=== PATIENT | female | born 2005 | race Caucasian/White ===

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

== ENCOUNTER 2024-04-05 17:03 | Emergency (ER) | payer MEDICAID, SELFPAY ==
[2024-04-05 17:43] VITALS: BP 115/66; PULSE 72; RESP 17; TEMP 36.6; O2SAT 100; BMI 19.0
--- NOTE | 2024-04-05 17:49 | DI.RAD.S_ITS ---
PROCEDURE: XR KNEE RT 3V INDICATIONS: injury TECHNIQUE: 3 views of the knee were acquired. COMPARISON: None. FINDINGS: Bones: No fractures or dislocations. No suspicious bony lesions. Soft tissues: No joint effusion. No suspicious soft tissue calcifications. IMPRESSION: No acute bony abnormality or significant effusion. If there are persistent symptoms or clinical suspicion for pathology, then repeat radiographs or advanced imaging (CT or MRI) may be considered for further evaluation. Dictated by: Jose Merrill M.D. on 04/05/2024 at 18:16 Approved by: Jose Merrill M.D. on 04/05/2024 at 18:17
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
[2024-04-05 19:50] VITALS: BP 102/75; PULSE 65; RESP 16; TEMP 36.9; O2SAT 98
== END 2024-04-05 19:51 | disposition home or self-care (01) ==
PROVIDERS: Emergency Provider Physician Assistant
DX: S83.411D Sprain of medial collateral ligament of right knee, subsequent encounter (principal)
CPT/HCPCS: 73562; 99281; 99283

== ENCOUNTER 2024-05-31 19:13 | Emergency (ER) | payer OTHER, SELFPAY ==
[2024-05-31] VITALS (8 sets, daily range): BP systolic 99–125; BP diastolic 58–88; PULSE 66–86; RESP 14–18; TEMP 37.2; O2SAT 97–100; BMI 18.7
--- NOTE | 2024-05-31 22:04 | PC.NURSE ---
Pt provides dc paperwork from previous facility visit. It shows rx's for albuterol inhaler, hydrocortisone cream, and prednisone. [facility] has not had to use inhaler. [facility] has taken steroid as prescribed and used cream without relief.
--- NOTE | 2024-05-31 23:49 | ED_ITS ---
HPI - Allergic Reaction General Chief complaint: Allergic Reaction Stated complaint: itching all over body Time Seen by Provider: 05/31/24 21:59 Source: patient Mode of arrival: Family Vehicle History of Present Illness HPI narrative: 18-year-old female presents for possible allergic reaction. She says that she is experiencing itching over her inner arms and her chest. Was seen at [facility] earlier in the week. She states that she was told that she had an allergic reaction but was not told what she was allergic to. She was discharged on prednisone and hydrocortisone cream. Patient states that she continues to have an itching sensation over her chest and arms. Got a new puppy 2 weeks prior. Related Data Home Medications Medication Instructions Recorded Confirmed cyclobenzaprine 10 mg tablet PO 04/05/24 diclofenac sodium 50 mg PO 04/05/24 tablet,delayed release Previous Rx's Medication Instructions Recorded hydroxyzine HCl 25 mg tablet 25 mg PO TID PRN anxiety #30 tabs 12/07/23 Allergies Allergy/AdvReac Type Severity Reaction Status Date / Time No Known Drug Allergies Allergy Verified 05/31/24 19:35 Patient History Social History Smoking Status: Never smoker Smoking Status: Never smoker alcohol intake frequency: other Exam Initial Vital Signs Initial Vital Signs: Vital Signs Temperature 99.0 F 05/31/24 19:31 Pulse Rate 86 05/31/24 19:31 Respiratory Rate 18 05/31/24 19:31 Blood Pressure 117/88 05/31/24 19:31 Pulse Oximetry 98 05/31/24 19:31 Oxygen Delivery Method Room Air 05/31/24 19:31 Const: Awake, alert, no acute distress, nontoxic appearing Cardiac: regular rate, regular rhythm RESP: unlabored, speaking in complete sentences without dyspnea Skin: Excoriations over inner elbows bilaterally. No rash, no broken skin, no urticaria Neuro: AO x3, CN II-XII grossly intact, moves all extremities Course Vital Signs Vital signs: Vital Signs - 8 hr 05/31/24 20:26 05/31/24 21:55 05/31/24 21:56 Pulse Rate 73 71 Respiratory Rate 14 18 Blood Pressure 99/58 L 125/81 Pulse Oximetry 99 100 Oxygen Delivery Method Room Air Room Air 05/31/24 22:00 05/31/24 22:00 05/31/24 22:30 Pulse Rate 66 69 Respiratory Rate Blood Pressure 111/74 Pulse Oximetry 99 98 Oxygen Delivery Method 05/31/24 22:31 05/31/24 22:31 05/31/24 23:00 Pulse Rate 74 70 Respiratory Rate 16 18 Blood Pressure 106/67 Pulse Oximetry 97 98 Oxygen Delivery Method Room Air Room Air 05/31/24 23:00 Pulse Rate Respiratory Rate Blood Pressure 103/65 Pulse Oximetry Oxygen Delivery Method MDM - Allergic Reaction MDM Narrative Medical decision making narrative: 18-year-old female with possible allergic reaction. Possibly due to dog in the house. No relief with hydrocortisone cream. Patient has some excoriations from nails on inner elbows bilaterally, no urticaria or rash present on any part of patient's body including back, chest, abdomen, lower extremities. Possibly allergic due to exposure from dog. Patient is not taking Benadryl even though her discharge paperwork from [facility] instructed her to take Benadryl. Patient was advised that from the emergency department it was nearly impossible to determine what exactly the patient could be allergic to. She was advised to continue the previously prescribed medications and to add Benadryl to her medications to see if this helps her itching. She was also advised to use a hydrating moisturizer to see if this helps her itching. PCP follow up advised. Discharge Plan Departure Patient Disposition: Home Clinical Impression: Allergic reaction Instructions: DI for Atopic Dermatitis-Adult Activity Restrictions/Additional Instructions: Take Benadryl for itching. I also recommend using a hydrating moisturizers such as Eucerin, CeraVe, Cetaphil, etc to keep your skin from flaking. I do not know what you are allergic to today, you will need to monitor your symptoms to see what makes them better or worse. Check your dog for fleas or other skin findings, this may be related to what is causing your symptoms today. Follow up with your primary care doctor. Continue the medications that you were given at [facility] Prescriptions: No Action hydroxyzine HCl 25 mg tablet 25 mg PO TID PRN (Reason: anxiety) Qty: 30 0RF cyclobenzaprine 10 mg tablet PO diclofenac sodium 50 mg tablet,delayed release (DR/EC) PO Stand Alone Forms: Patient Portal/API/Survey
== END 2024-05-31 23:54 | disposition home or self-care (01) ==
PROVIDERS: Emergency Provider Emergency Medicine
DX: T78.40XA Allergy, unspecified, initial encounter (principal); X58.XXXA Exposure to other specified factors, initial encounter
CPT/HCPCS: 99281

== ENCOUNTER 2024-06-18 13:14 | Emergency (ER) | payer OTHER, SELFPAY ==
[2024-06-18] VITALS (10 sets, daily range): BP systolic 103–130; BP diastolic 55–78; PULSE 68–83; RESP 16; TEMP 37; O2SAT 93–100; BMI 18.8
--- NOTE | 2024-06-18 13:34 | ED.ABDPAIN ---
HPI - Abdominal Pain <Jaky Sanchez PA-C - Last Filed: 06/18/24 19:58> General Chief Complaint: Abdominal Pain Stated Complaint: thinks she's Time Seen by Provider: 06/18/24 13:33 Source: patient Mode of arrival: Ambulatory History of Present Illness HPI narrative: 18-year-old young lady presents with generalized abdominal pain that started around May 27 or so. She points to the entire abdomen and states that it sometimes goes through to the back. She endorses feeling bloated, with intermittent nausea. Her last menstrual cycle was May 14, 2024 that she was concerned about possibility of . Apparently she was seen at [facility] for this and was diagnosed with a right ruptured ovarian cyst, no follow-up was performed and she has no regular doctor. She has no history of any abdominal surgeries or otherwise. Her last bowel movement was 1 week ago she described straining and that it was dry. Her normal pattern is a bowel movement every other day. She does not report any increase in gas, no belching, no sour taste, no actual vomiting. No disruption during sleep. Lastly she reports no new vaginal symptoms but endorses having ?my entire life a white clumpy discharge with no odor or itching.? She states it has not copious and she does not require a sanitary napkin. Her menstrual cycles generally were monthly and this is the longest she has been without one. She is adopted so she does not know her biological family history. She is former and is waiting to establish care at the [facility]. Her last oral intake was last night with no issues. She reports no unintentional weight gain but she thinks she is lost about 10 lb over the last month or so unintentionally with 1 full size of clothing decrease. She is here with her partner, they do not use control. All other systems are reviewed and are negative. Related Data Home Medications Medication Instructions Recorded Confirmed cyclobenzaprine 10 mg tablet PO 04/05/24 diclofenac sodium 50 mg PO 04/05/24 tablet,delayed release Previous Rx's Medication Instructions Recorded hydroxyzine HCl 25 mg tablet 25 mg PO TID PRN anxiety #30 tabs 12/07/23 Allergies Allergy/AdvReac Type Severity Reaction Status Date / Time No Known Drug Allergies Allergy Verified 06/18/24 13:20 Review of Systems <Jaky Sanchez PA-C - Last Filed: 06/18/24 19:58> Review of Systems Narrative: All other systems reviewed and are negative. Patient History <Jaky Sanchez PA-C - Last Filed: 06/18/24 19:58> Social History Smoking Status: Never smoker Smoking Status: Never smoker alcohol intake frequency: other Exam <Jaky aSnchez PA-C - Last Filed: 06/18/24 19:58> Initial Vital Signs Initial Vital Signs: Vital Signs Temperature 98.6 F 06/18/24 13:18 Pulse Rate 76 06/18/24 13:18 Respiratory Rate 16 06/18/24 13:18 Blood Pressure 130/78 06/18/24 13:18 Pulse Oximetry 99 06/18/24 13:18 Oxygen Delivery Method Room Air 06/18/24 13:18 Vital signs reviewed and are normal. Const General: cooperative, healthy appearing, comfortable, well developed and No acute distress HENMT Mouth: oral mucosae normal, lip normal and tongue normal Eyes General: Yes appearance normal, both eyes and all related structures Neck Neck: normal visual inspection, full ROM and no meningeal signs Lymphatic: No lymphadenopathy Chest Chest: normal inspection of the chest Resp Effort & Inspection: normal respiratory effort and able to speak in complete sentences Auscultation: clear to auscultation bilaterally, no rales, no rhonchi and no wheezes Other: No pain with deep inspiration. Cardio Rate: regular rate Rhythm: regular rhythm GI Inspection: normal to inspection, no edema, non-distended, no large pannus, no striae and no visible herniation Palpation: soft, no hepatosplenomegaly, No firm, No guarding, No mass, No pulsatile mass and No rigid Percussion: normal to percussion and dullness to percussion (Lower quadrants dull.) Auscultation: normal bowel sounds Rectal Exam: visual inspection normal, normal sphincter tone and No fecal impaction Other: No retained stool in the rectal vault, I am able to palpate some stool high up past the sphincter. Nontender examination. No CVA tenderness. Negative obturator and psoas sign. No McBurney's point tenderness. Negative Richardson's. Nontender abdomen without guarding throughout. Nondistended bladder, nontender. Skin General: no rashes or lesions noted <DO Orestes Price Last Filed: 06/19/24 09:05> Initial Vital Signs Initial Vital Signs: Vital Signs Temperature 98.6 F 06/18/24 13:18 Pulse Rate 76 06/18/24 13:18 Respiratory Rate 16 06/18/24 13:18 Blood Pressure 130/78 06/18/24 13:18 Pulse Oximetry 99 06/18/24 13:18 Oxygen Delivery Method Room Air 06/18/24 13:18 Course <Jaky Sanchez PA-C - Last Filed: 06/18/24 19:58> Orders Ordered: Discontinued Medications Ketorolac Tromethamine (Ketorolac 30 Mg/Ml Vial) 15 mg IV NOW ONE Stop: 06/18/24 16:47 Last Admin: 06/18/24 16:54 Dose: 15 mg Documented By: RB Vital Signs Vital signs: Vital Signs - 8 hr 06/18/24 13:18 06/18/24 14:56 06/18/24 14:59 Temperature 98.6 F Pulse Rate 76 81 Respiratory Rate 16 Blood Pressure 130/78 107/70 Pulse Oximetry 99 99 Oxygen Delivery Method Room Air 06/18/24 14:59 06/18/24 15:00 06/18/24 15:30 Temperature Pulse Rate 77 75 83 Respiratory Rate Blood Pressure Pulse Oximetry 99 98 99 Oxygen Delivery Method 06/18/24 15:30 06/18/24 17:40 Temperature Pulse Rate 68 Respiratory Rate Blood Pressure 111/63 103/55 L Pulse Oximetry 97 Oxygen Delivery Method <DO Orestes Price Last Filed: 06/19/24 09:05> Orders Ordered: Discontinued Medications Ketorolac Tromethamine (Ketorolac 30 Mg/Ml Vial) 15 mg IV NOW ONE Stop: 06/18/24 16:47 Last Admin: 06/18/24 16:54 Dose: 15 mg Documented By: RB Vital Signs Vital signs: Vital Signs - 8 hr 06/18/24 13:18 06/18/24 14:56 06/18/24 14:59 Temperature 98.6 F Pulse Rate 76 81 Respiratory Rate 16 Blood Pressure 130/78 107/70 Pulse Oximetry 99 99 Oxygen Delivery Method Room Air 06/18/24 14:59 06/18/24 15:00 06/18/24 15:30 Temperature Pulse Rate 77 75 83 Respiratory Rate Blood Pressure Pulse Oximetry 99 98 99 Oxygen Delivery Method 06/18/24 15:30 06/18/24 17:40 Temperature Pulse Rate 68 Respiratory Rate Blood Pressure 111/63 103/55 L Pulse Oximetry 97 Oxygen Delivery Method MDM - Abdominal Pain <Jaky Sanchez PA-C - Last Filed: 06/18/24 19:58> Lab Data Lab results narrative: CBC and CMP are normal. Urinalysis was normal, urine hCG was negative. Wet prep was negative. GC chlamydia negative. 06/18/24 14:10 06/18/24 14:10 Labs: Lab Results 06/18/24 Range/Units 14:10 WBC 5.8 (4.5-11.0) X10^3/uL RBC 4.31 (4.0-5.2) X10^6/uL Hgb 13.0 (12.0-16.0) g/dL Hct 39.5 (36-46) % MCV 91.7 (80-100) fL MCH 30.2 (26-34) PG MCHC 33.0 (30-36) % RDW 12.3 (11.6-14.8) % Plt Count 191 (150-400) X10^3/uL Neut % (Auto) 71.4 (50-75) % Lymph % (Auto) 19.1 L (25-40) % Swift % (Auto) 8.5 (3-14) % Eos % (Auto) 0.8 L (2-4) % Baso % (Auto) 0.2 (0-2) % Neut # (Auto) 4100 (8930-7238) /uL Lymph # (Auto) 1100 (8295-6066) /uL Swift # (Auto) 500 (0-900) /uL Eos # (Auto) 0 (0-450) /uL Baso # (Auto) 0 (0-100) /uL Sodium 140 (137-145) mmol/L Potassium 3.8 (3.4-5.1) mmol/L Chloride 107 (98-107) mmol/L Carbon Dioxide 24 (22-32) mmol/L BUN 7 (7-17) mg/dL Creatinine 0.64 (0.52-1.04) mg/dL Estimated GFR > 60 (>60) mL/min BUN/Creatinine Ratio 10.9 (6-22) Glucose 91 (70-100) mg/dL Calcium 9.5 (8.4-10.2) mg/dL Total Bilirubin 0.8 (0.2-1.3) mg/dL AST 28 (14-36) IU/L ALT 17 (<35) IU/L Alkaline Phosphatase 70 (38-126) U/L Total Protein 7.3 (6.3-8.2) g/dL Albumin 4.5 (3.5-5.0) g/dL Globulin 2.8 (1.7-4.1) g/dL Albumin/Globulin Ratio 1.6 (1.0-2.8) Lipase 63 (23-300) U/L Ur Chlamydia DNA (PCR) Not detected N gonorrhoeae DNA (PCR) Not detected Point of care testing: Point of Care Testing Test Results Negative Urine Dip Bedside Urine Glucose Negative Bedside Urine Bilirubin - Negative Bedside Urine Ketone - Negative Urine Specific [place] 1.000 Bedside Urine Occult Blood - Negative Bedside Urine pH 6.0 Bedside Urine Protein - Negative Bedside Urine Urobilinogen - Negative Bedside Urine Nitrite - Negative Bedside Urine Leukocytes - Negative Esterase Imaging Data CT scan - abdomen/pelvis: My Impression: Deferred to radiologist's interpretation below. Radiologist's Impression: PROCEDURE: CT ABDOMEN PELVIS W CON INDICATIONS: generalized abd pain TECHNIQUE: After the administration of intravenous contrast, axial sections acquired from the lung bases to the pubic symphysis. Coronal and sagittal reformats were performed. For radiation dose reduction, the following was used: automated exposure control, adjustment of mA and/or kV according to patient size. COMPARISON: None. FINDINGS: Image quality: Diagnostic Lower chest: Unremarkable lung bases Normal heart size. Liver: Unremarkable Gallbladder and biliary system: Unremarkable, nondistended Pancreas: No ductal dilation Spleen: Nonenlarged Adrenals: No discrete nodules Kidneys: No solid mass. No hydronephrosis. There is a subcentimeter lesion at the left superior pole which is too small to characterize, usually a cyst. Vessels and lymph nodes: The main portal vein is patent. No abdominal aortic aneurysm. No pathologic lymph nodes by size criteria. Bowel and peritoneum: Moderate gastric distention. No small bowel obstruction. Trace pelvic free fluid is probably physiologic in this age demographic. A nondistended appendix is questionably seen in the right pelvis. Fecal loading is moderate in the proximal aspect. Body wall: Unremarkable Pelvis: There are prominent adnexal veins bilaterally. Reproductive organs could be better evaluated with ultrasound if clinically indicated. A 3 cm probable cyst is seen in or adjacent to the right ovary. The bladder is under distended. Bones: No acute or suspicious osseous finding. Lumbosacral transitional anatomy. IMPRESSION: No acute small bowel obstruction. However, there is moderate gastric distension. Fecal loading is moderate in the proximal colon. A questionable nondilated appendix is seen in the right pelvis 3 cm right ovarian or paraovarian cyst. Correlate with ultrasound if there is further concern for pelvic pathology. Prominent adnexal vessels bilaterally, sometimes seen with pelvic congestion. Other findings above. Dictated by: Lamont Sanchez M.D. on 06/18/2024 at 15:38 Approved by: Lamont Sanchez M.D. on 06/18/2024 at 15:44 US-pelvic + abd limited: My Impression: Per vocational instructor, right ovarian cyst measures 3.2 cm solid composition versus debris, bilateral ovary Dopplers within normal limits, appendix is also within normal limits at 0.3 cm. MDM Narrative Medical decision making narrative: Patient presented with generalized abdominal pain that has been going on since mid May. She was diagnosed with a ruptured right ovarian cyst at [place] [facility]. her pain is rated as a 4/10, CT scan shows moderate gastric distension, fecal loading is moderate in the proximal colon. A questionable nondilated appendix is seen in the right pelvis and a 3 cm right ovarian or paraovarian cyst. Prominent adnexal vessels bilaterally, sometimes seen with pelvic congestion. Her rectal exam was without any discomfort whatsoever and there was no stool retained in the rectal vault. Ultrasound was ordered to further characterize and correlate the CT findings. Ultrasound shows a right ovarian cyst measuring 3.2 cm with solid composition versus debris, bilateral ovary Doppler was within normal limits in the appendix was also within normal limits. I will refer her to Gynecology, also highly encouraged to follow up with PCP that she is yet to reestablish. She did get some good relief with the Toradol intravenous, so she may continue with nti-inflammatories such as ibuprofen 400-600 mg 3 times daily with food. Heating pad might be helpful as well, red flag warning signs reviewed in detail and to return to the emergency department or seek medical attention if you have any worsening pain or any new worrisome symptoms. <Kim C Mank, DO - Last Filed: 06/19/24 09:05> Lab Data Labs: Lab Results 06/18/24 Range/Units 14:10 WBC 5.8 (4.5-11.0) X10^3/uL RBC 4.31 (4.0-5.2) X10^6/uL Hgb 13.0 (12.0-16.0) g/dL Hct 39.5 (36-46) % MCV 91.7 (80-100) fL MCH 30.2 (26-34) PG MCHC 33.0 (30-36) % RDW 12.3 (11.6-14.8) % Plt Count 191 (150-400) X10^3/uL Neut % (Auto) 71.4 (50-75) % Lymph % (Auto) 19.1 L (25-40) % Swift % (Auto) 8.5 (3-14) % Eos % (Auto) 0.8 L (2-4) % Baso % (Auto) 0.2 (0-2) % Neut # (Auto) 4100 (0975-8043) /uL Lymph # (Auto) 1100 (3675-2200) /uL Swift # (Auto) 500 (0-900) /uL Eos # (Auto) 0 (0-450) /uL Baso # (Auto) 0 (0-100) /uL Sodium 140 (137-145) mmol/L Potassium 3.8 (3.4-5.1) mmol/L Chloride 107 (98-107) mmol/L Carbon Dioxide 24 (22-32) mmol/L BUN 7 (7-17) mg/dL Creatinine 0.64 (0.52-1.04) mg/dL Estimated GFR > 60 (>60) mL/min BUN/Creatinine Ratio 10.9 (6-22) Glucose 91 (70-100) mg/dL Calcium 9.5 (8.4-10.2) mg/dL Total Bilirubin 0.8 (0.2-1.3) mg/dL AST 28 (14-36) IU/L ALT 17 (<35) IU/L Alkaline Phosphatase 70 (38-126) U/L Total Protein 7.3 (6.3-8.2) g/dL Albumin 4.5 (3.5-5.0) g/dL Globulin 2.8 (1.7-4.1) g/dL Albumin/Globulin Ratio 1.6 (1.0-2.8) Lipase 63 (23-300) U/L Ur Chlamydia DNA (PCR) Not detected N gonorrhoeae DNA (PCR) Not detected Point of care testing: Point of Care Testing Test Results Negative Urine Dip Bedside Urine Glucose Negative Bedside Urine Bilirubin - Negative Bedside Urine Ketone - Negative Urine Specific [place] 1.000 Bedside Urine Occult Blood - Negative Bedside Urine pH 6.0 Bedside Urine Protein - Negative Bedside Urine Urobilinogen - Negative Bedside Urine Nitrite - Negative Bedside Urine Leukocytes - Negative Esterase Discharge Plan Departure Patient Disposition: Home Clinical Impression: Ovarian cyst Qualifiers: Laterality: right Qualified Code(s): N83.201 - Unspecified ovarian cyst, right side Activity Restrictions/Additional Instructions: Your CT scan and ultrasound confirmed a right ovarian cyst measuring approximately 3.2 cm, there is some debris within the cyst versus solid material so this does require follow up. 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 You were given Toradol which is a strong anti-inflammatory today, I would like you to continue anti-inflammatory such as ibuprofen 400-600 mg every 8 hours which is 3 times a day with food for the next couple of days for your pain. You can also do acetaminophen. Do hydrate, use a stool softener if needed or Dulcolax to help have a bowel movement if you have yet to have one. High-fiber diet, and of course do not hesitate to return to the emergency department if anything changes, you develop any new worrisome symptoms, or you have recurrent or worsening pain. Prescriptions: No Action hydroxyzine HCl 25 mg tablet 25 mg PO TID PRN (Reason: anxiety) Qty: 30 0RF cyclobenzaprine 10 mg tablet PO diclofenac sodium 50 mg tablet,delayed release (DR/EC) PO Referrals: Cely Richardson MD [Physician] - (18 yo female right ovarian cyst 3.2cm with solid comp. vs. debris. ) Stand Alone Forms: Patient Portal/API/Survey, Work Release Note ED Sign-out <Kim Foreman DO - Last Filed: 06/19/24 09:05> Cosign ED Attending Cosignature Attestation: I was immediately available in the department for consultation.
[2024-06-18 14:26] LABS: Add Manual Diff / Slide Review NO; Basophils Absolute Auto 0 /uL (0-100); Basophils Percent Auto 0.2 % (0-2); Eosinophils Absolute Auto 0 /uL (0-450); Eosinophils Percent Auto 0.8 % (2-4); Hematocrit 39.5 % (36-46); Lymphocytes Absolute Auto 1100 /uL (1100-4500); Lymphocytes Percent Auto 19.1 % (25-40); Mean Corpuscular Hemoglobin 30.2 PG (26-34); Mean Corpuscular Volume 91.7 fL (80-100); Monocytes Absolute Auto 500 /uL (0-900); Monocytes Percent Auto 8.5 % (3-14); Neutrophils Absolute Auto 4100 /uL (1500-7000); Neutrophils Percent Auto 71.4 % (50-75); Platelet Count 191 X10^3/uL (150-400); Red Blood Cell Count 4.31 X10^6/uL (4.0-5.2); Red Cell Distribution Width 12.3 % (11.6-14.8); White Blood Cell Count 5.8 X10^3/uL (4.5-11.0)
[2024-06-18 14:38] LABS: Alanine Aminotransferase 17 IU/L (<35); Albumin 4.5 g/dL (3.5-5.0); Albumin Globulin Ratio 1.6 (1.0-2.8); Alkaline Phosphatase 70 U/L (38-126); Aspartate Aminotransferase 28 IU/L (14-36); BUN Creatinine Ratio 10.9 (6-22); Bilirubin Total 0.8 mg/dL (0.2-1.3); Blood Urea Nitrogen 7 mg/dL (7-17); Calcium 9.5 mg/dL (8.4-10.2); Carbon Dioxide 24 mmol/L (22-32); Chloride 107 mmol/L (98-107); Estimated Glomerular Filt Rate > 60 mL/min (>60); Globulin 2.8 g/dL (1.7-4.1); Glucose 91 mg/dL (70-100); HEMOLYSIS < 15 (0-50); Lipase 63 U/L (23-300); Potassium 3.8 mmol/L (3.4-5.1); Sodium 140 mmol/L (137-145); Total Protein 7.3 g/dL (6.3-8.2)
--- NOTE | 2024-06-18 15:52 | DI.CT.S_ITS ---
PROCEDURE: CT ABDOMEN PELVIS W CON INDICATIONS: generalized abd pain TECHNIQUE: After the administration of intravenous contrast, axial sections acquired from the lung bases to the pubic symphysis. Coronal and sagittal reformats were performed. For radiation dose reduction, the following was used: automated exposure control, adjustment of mA and/or kV according to patient size. COMPARISON: None. FINDINGS: Image quality: Diagnostic Lower chest: Unremarkable lung bases Normal heart size. Liver: Unremarkable Gallbladder and biliary system: Unremarkable, nondistended Pancreas: No ductal dilation Spleen: Nonenlarged Adrenals: No discrete nodules Kidneys: No solid mass. No hydronephrosis. There is a subcentimeter lesion at the left superior pole which is too small to characterize, usually a cyst. Vessels and lymph nodes: The main portal vein is patent. No abdominal aortic aneurysm. No pathologic lymph nodes by size criteria. Bowel and peritoneum: Moderate gastric distention. No small bowel obstruction. Trace pelvic free fluid is probably physiologic in this age demographic. A nondistended appendix is questionably seen in the right pelvis. Fecal loading is moderate in the proximal aspect. Body wall: Unremarkable Pelvis: There are prominent adnexal veins bilaterally. Reproductive organs could be better evaluated with ultrasound if clinically indicated. A 3 cm probable cyst is seen in or adjacent to the right ovary. The bladder is under distended. Bones: No acute or suspicious osseous finding. Lumbosacral transitional anatomy. IMPRESSION: No acute small bowel obstruction. However, there is moderate gastric distension. Fecal loading is moderate in the proximal colon. A questionable nondilated appendix is seen in the right pelvis 3 cm right ovarian or paraovarian cyst. Correlate with ultrasound if there is further concern for pelvic pathology. Prominent adnexal vessels bilaterally, sometimes seen with pelvic congestion. Other findings above. Dictated by: Lamont Sanchez M.D. on 06/18/2024 at 15:38 Approved by: Lamont Sanchez M.D. on 06/18/2024 at 15:44
[2024-06-18 15:57] LABS: Urine N gonorrhoeae NOT DETECTED
[2024-06-18 15:58] LABS: Urine Chlamydia NOT DETECTED
[2024-06-18] MEDS: KETOROLAC 30 MG/ML VIAL 15 MG IV (16:54)
--- NOTE | 2024-06-18 16:59 | DI.US.S_ITS ---
PROCEDURE: US PELVIC COMPLETE INDICATIONS: CT shows right ovarian cyst, pain TECHNIQUE: Real-time scanning was performed of the pelvic organs, with image documentation. Additional endovaginal scanning was necessary due to incomplete visualization of the adnexal and endometrial structures by transabdominal scanning. COMPARISON: [facility], CT, CT ABDOMEN PELVIS W CON, 06/18/2024, 15:55. FINDINGS: Uterus: 7 x 5 x 3.5 cm. Endometrium measures 7 mm, which is within normal limits. Ovaries: Enlarged right ovary measuring 19 cc. Right ovarian cyst with possible peripheral debris is present measuring 3.2 x 2.8 cm. Left para ovarian simple cyst measures 1.2 x 1 cm. Color and spectral flows are seen bilaterally. Other: Right small simple fluid may be physiologic. IMPRESSION: Complicated right ovarian cyst with presumed peripheral debris measuring 3.2 x 2.8 cm. No ultrasound evidence currently of torsion. 1-2 month follow-up ultrasound is suggested to ensure resolution. Dictated by: Lamont Sanchez M.D. on 06/18/2024 at 17:43 Approved by: Lamont Sanchez M.D. on 06/18/2024 at 17:45
--- NOTE | 2024-06-18 17:41 | DI.US.S_ITS ---
PROCEDURE: US ABDOMEN LIMITED INDICATIONS: CT shows non-dilated appendix as well, (w/ ovarian cyst) TECHNIQUE: Real-time focused scanning was performed of the abdomen, with image documentation. COMPARISON: None. Findings and impression: The appendix is visualized and is nondilated. No abscess. The appendix is compressible. No focal tenderness during the exam. Dictated by: Lamont Sanchez M.D. on 06/18/2024 at 17:45 Approved by: Lamont Sanchez M.D. on 06/18/2024 at 17:46
== END 2024-06-18 18:50 | disposition home or self-care (01) ==
PROVIDERS: Emergency Provider Physician Assistant Medical
DX: N83.201 Unspecified ovarian cyst, right side (principal)
CPT/HCPCS: 74177; 76705; 76830; 76856; 80053; 81003; 81025; 83690; 85025; 87210; 87491; 87591; 93975; 96374; 99283; 99284; J1885; Q9967

== ENCOUNTER 2024-07-23 00:27 | Emergency (ER) | payer OTHER, SELFPAY ==
[2024-07-23 00:35] VITALS: BP 121/76; PULSE 90; RESP 20; TEMP 36.7; O2SAT 98; BMI 17.3
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
[2024-07-23] MEDS: CYCLOBENZAPRINE 10 MG TABLET PO (00:56)
[2024-07-23] MEDS: predniSONE 20 MG TABLET PO (00:56)
[2024-07-23] MEDS: NAPROXEN 250 MG TABLET 500 MG PO (00:56)
== END 2024-07-23 01:03 | disposition home or self-care (01) ==
PROVIDERS: Emergency Provider Student in an Organized Health Care Education/Training Program
DX: S39.012D Strain of muscle, fascia and tendon of lower back, subsequent encounter (principal); V89.2XXD Person injured in unspecified motor-vehicle accident, traffic, subsequent encounter
CPT/HCPCS: 99283

== ENCOUNTER 2024-08-27 01:48 | Emergency (ER) | payer OTHER, SELFPAY ==
[2024-08-27 01:56] VITALS: BP 132/79; PULSE 97; RESP 16; TEMP 36.9; O2SAT 98; BMI 18.8
--- NOTE | 2024-08-27 01:56 | ED.LOWEXIN ---
HPI - Extremity Injury (Lower) General Chief Complaint: Extremity Injury, Lower Stated Complaint: Rt knee pain Time Seen by Provider: 08/27/24 01:52 History of Present Illness HPI Narrative: Patient 18-year-old female presenting today with right knee pain. She has had chronic ongoing right knee pain reports that it keeps getting locked. She has had multiple x-rays. She wears a knee brace but says it is flimsy. She is on disability due to this knee. Trying to get into ortho but nobody takes her insurance. Tonight she was bowling and around 10:00 a.m. her knee locked and it was extremely painful she would pain going all the way up into her spine. She did not fall. Has locked many times throughout the night. But this started around 10:00 p.m.. No new injury today Related Data Home Medications Medication Instructions Recorded Confirmed cyclobenzaprine 10 mg tablet PO 04/05/24 06/27/24 diclofenac sodium 50 mg PO 04/05/24 06/27/24 tablet,delayed release Previous Rx's Medication Instructions Recorded hydroxyzine HCl 25 mg tablet 25 mg PO TID PRN anxiety #30 tabs 12/07/23 L norgest/E estradiol-E estrad 0.1 See Rx Instructions PO .COMPLEX 06/27/24 mg-20 mcg (84)/10 mcg (7) tabs,3mos #182 ea methylprednisolone 4 mg tablets in 4 mg PO DAILY #21 ea 07/23/24 a dose pack (Medrol (Onur)) Allergies Allergy/AdvReac Type Severity Reaction Status Date / Time No Known Drug Allergies Allergy Verified 06/27/24 11:57 Patient History Medical History (Updated 08/27/24 @ 02:06 by Suzi Brennan DO) Heavy menstrual bleeding Social History Smoking Status: Never smoker Smoking Status: Never smoker alcohol intake frequency: other Exam Initial Vital Signs Initial Vital Signs: GENERAL: Well-appearing, well-nourished and in no acute distress. CARDIOVASCULAR: peripheral pulses in tact, cap refill <2 sec RESPIRATORY: No respiratory distress, speaks in full sentences without difficulty EXTREMITIES: Normal range of motion, no clubbing or edema. Neurovascularly intact Right lower extremity knee is stable no negative anterior-posterior drawer no pain medially or laterally no significant effusion distal pedal pulses strong NEUROLOGICAL: Cranial nerves II through XII grossly intact. Normal gait and speech. SKIN: Warm, dry, no petechiae, no rashes or lesions. MDM - Extremity Injury (Lower) MDM Narrative Medical decision making narrative: Patient has had ongoing right knee pain. Reports the knee locking keeps happening despite wearing knee brace. It happened multiple times tonight. Has not taken anything for pain. Exam is very benign no significant instability swelling or other abnormality good pulse. At this time there is no new injury no need for x-ray. She was given a knee immobilizer. Discharge Plan Departure Patient Disposition: Home Clinical Impression: Strain of right knee Instructions: DI for Knee Sprain Activity Restrictions/Additional Instructions: *You have been diagnosed with right knee strain *What to do: Wear knee immobilizer as needed you can also wear while sleeping. You do need to follow-up with othopedics sorry this is a challenging *Continue to take medications as directed Told Motrin as needed for pain *Follow up with your primary care provider in 2-3 days or call [phone] *Return to ER if you should have any new, worsening or concerning symptoms Prescriptions: No Action L norgest/e.estradiol-e.estrad 0.1 mg-20 mcg (84)/10 mcg (7) tablets,dose pack,3 month See Rx Instructions PO .COMPLEX Qty: 182 0RF Rx Instructions: take 1 tablet daily following the order on blister card(s) PO hydroxyzine HCl 25 mg tablet 25 mg PO TID PRN (Reason: anxiety) Qty: 30 0RF methylprednisolone [Medrol (Onur)] 4 mg tablets,dose pack 4 mg PO DAILY Qty: 21 0RF cyclobenzaprine 10 mg tablet PO diclofenac sodium 50 mg tablet,delayed release (DR/EC) PO Referrals: Miscellaneous,Doctor, MD [Primary Care Provider] - Stand Alone Forms: Patient Portal/API/Survey
[2024-08-27 02:40] VITALS: BP 115/75; PULSE 98; RESP 15; O2SAT 98
== END 2024-08-27 02:42 | disposition home or self-care (01) ==
PROVIDERS: Emergency Provider Emergency Medicine
DX: S86.811A Strain of other muscle(s) and tendon(s) at lower leg level, right leg, initial encounter (principal); X58.XXXA Exposure to other specified factors, initial encounter; Y93.54 Activity, bowling
CPT/HCPCS: 99282

== ENCOUNTER 2024-11-30 07:32 | Emergency (ER) | payer OTHER, SELFPAY ==
[2024-11-30 07:37] VITALS: BP 136/61; PULSE 97; RESP 18; TEMP 36.9; O2SAT 99; BMI 18.3
--- NOTE | 2024-11-30 08:04 | ED_ITS ---
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 Patient has history of right chronic knee pain for the past 2 years for which he has been alternating Tylenol and ibuprofen and has x-rays done showing no acute process but perhaps ligament tendon issue but has not follow up with the orthopedic surgeon due to insurance reasons. Patient denies headache, dizziness, blurred vision, chest pain, neck pain, nausea, vomiting, numbness, tingling down the legs, bowel or bladder incontinence, or hematuria. Other than what is stated 14 point review of system is negative. Related Data Home Medications ?Medication ?Instructions ?Recorded ?Confirmed cyclobenzaprine 10 mg tablet PO 04/05/24 06/27/24 diclofenac sodium 50 mg PO 04/05/24 06/27/24 tablet,delayed release Previous Rx's ?Medication ?Instructions ?Recorded hydroxyzine HCl 25 mg tablet 25 mg PO TID PRN anxiety #30 tabs 12/07/23 L norgest/E estradiol-E estrad 0.1 See Rx Instructions PO .COMPLEX 06/27/24 mg-20 mcg (84)/10 mcg (7) tabs,3mos #182 ea methylprednisolone 4 mg tablets in 4 mg PO DAILY #21 e a 07/23/24 a dose pack (Medrol (Onur)) ketorolac 10 mg tablet 10 mg PO Q6H PRN pain #20 ta bs 11/30/24 Allergies Allergy/AdvReac Type Severity Reaction Status Date / Time Latex, Natural Rubber Allergy ITCHING Verified 11/30/24 07:38 Review of Systems Review of Systems ROS Unobtainable: All systems reviewed & are unremarkable except as noted in HPI and below Patient History Medical History (Updated 11/30/24 @ 09:20 by Jhon España DO) Heavy menstrual bleeding Social History Smoking Status: Never smoker Smoking Status: Never smoker alcohol intake frequency: other Exam Narrative Exam Narrative: GENERAL: [19] year old patient appears stated age. Well-developed patient, in mild distress. HEAD: Atraumatic. Normocephalic. EYES: Pupils equal round and reactive. Extraocular motions intact. No scleral icterus. No injection or drainage. NECK: Trachea midline. Non tender CARDIOVASCULAR: Regular rate and rhythm without murmurs, gallops, or rubs. RESPIRATORY: Clear to auscultation. Breath sounds equal bilaterally. No wheezes, rales, or rhonchi. GASTROINTESTINAL: Abdomen soft, non-tender, nondistended. EXTREMITIES: No edema or joint tenderness. Right knee mild suprapatellar effusion, no medial or lateral joint line tenderness. Varus valgus anterior po sterior drawer all intact Sumanth's and China's and intact motor sensory intact +2 DP +2 PT cap refill less than 2 seconds BACK: No obvious deformed or crepitance. Midline TTP of L1-L2. No flank t enderness. NEURO: AOx3. GCS 15 nonfocal neuro exam SKIN: No rash or erythema of visible areas Initial Vital Signs Initial Vital Signs: Vital Signs Temperature 98.5 F 11/30/24 07:37 Pulse Rate 97 H 11/30/24 07:37 Respiratory Rate 18 11/30/24 07:37 Blood Pressure 136/61 11/30/24 07:37 Pulse Oximetry 99 11/30/24 07:37 Oxygen Delivery Method Room Air 11/30/24 07:37 Course Orders Ordered: ED Orders 11/30/24 08:10 CXR [XR chest 2V] Stat XR knee RT 3V Stat XR lumbar spine min 4V Stat Discontinued Medications Acetaminophen (Acetaminophen 325 Mg Tablet) 975 mg PO NOW ONE Stop: 11/30/24 08:12 Last Admin: 11/30/24 08:34 Dose: 975 mg Documented By: ASHLEY Ketorolac Tromethamine (Ketorolac 30 Mg/Ml Vial) 30 mg IM NOW ONE Stop: 11/30/24 08:12 Last Admin: 11/30/24 08:33 Dose: 30 mg Documented By: ASHLEY Vital Signs Vital signs: Vital Signs - 8 hr 11/30/24 07:37 Temperature 98.5 F Pulse Rate 97 H Respiratory Rate 18 Blood Pressure 136/61 Pulse Oximetry 99 Oxygen Delivery Method Room Air MDM - Fall Imaging Data Extremity x-ray #1: Radiologist's Impression: [address] [address] XRay Report Signed Patient: Cely Steele MR#: [id number] : 2005 Acct:[id number] Age/Sex: 19 / F Date of Service: 11/30/24 Loc: ED Accession Number: [id number] Procedure: XR lumbar spine min 4V Ordering Provider: Jhon España D.O. PROCEDURE: XR LUMBAR SPINE 5V INDICATIONS: trauma TECHNIQUE: 5 views of the lumbar spine were acquired, including bilateral oblique views. COMPARISON: None. FINDINGS: Bones: 5 nonrib-bearing vertebrae are present. There is normal bony alignment. No vertebral body compression fractures. No suspicious bony lesions. Soft tissues: Overlying bowel gas pattern is normal. No suspicious soft tissue calcifications. Oblique images: No pars defects. IMPRESSION: No radiographic evidence of acute abnormality. If symptoms persist or worsen, or there is high clinical suspicion of lumbar abnormality, CT or MRI could be performed. Extremity x-ray #2: Radiologist's Impression: [address] [address] XRay Report Signed Patient: Cely Steele MR#: [id number] : 2005 Acct:[id number] Age/Sex: 19 / F Date of Service: 11/30/24 Loc: ED Accession Number: [id number] Procedure: XR knee RT 3V Ordering Provider: Jhon España D.O. PROCEDURE: XR KNEE RT 3V INDICATIONS: trauma TECHNIQUE: 3 views of the knee were acquired. [facility], [facility], 04/05/2024, 17:51. FINDINGS: Bones: No fractures or dislocations. No suspicious bony lesions. Soft tissues: No joint effusion. No suspicious soft tissue calcifications. IMPRESSION: No acute bony abnormality or significant effusion. MDM Narrative Medical decision making narrative: Vital signs, nurse triage note, medication list, previous ER visits, and all imaging modalities reviewed. Lumbar and knee x-ray did not show any acute process. Differential diagnosis includes fracture dislocation meniscal ligament tendon injury contusion sprain spondylolysis, spondylolisthesis. Patient given Toradol shot and Tylenol here. DC home on ketorolac rx. Return with new or worsening symptoms Discharge Plan Departure Patient Disposition: Home Clinical Impression: Acute low back pain, Acute knee pain Instructions: DI for Knee Pain Activity Restrictions/Additional Instructions: Return with new or worsening symptoms. Follow up with Orthopaedic Sports Medicine and or family doctor once you are able to get your health insurance in January. Take medicines directed. Prescriptions: New ketorolac 10 mg tablet 10 mg PO Q6H PRN (Reason: pain) Qty: 20 0RF Rx Instructions: maximum total duration of 5 days from all oral, intranasal, or parenteral formulations No Action L norgest/e.estradiol-e.estrad 0.1 mg-20 mcg (84)/10 mcg (7) tablets,dose pack,3 month See Rx Instructions PO .COMPLEX Qty: 182 0RF Rx Instructions: take 1 tablet daily following the order on blister card(s) PO hydroxyzine HCl 25 mg tablet 25 mg PO TID PRN (Reason: anxiety) Qty: 30 0RF methylprednisolone [Medrol (Onur)] 4 mg tablets,dose pack 4 mg PO DAILY Qty: 21 0RF cyclobenzaprine 10 mg tablet PO diclofenac sodium 50 mg tablet,delayed release (DR/EC) PO Referrals: Miscellaneous,Doctor, MD [Primary Care Provider, Medical] Stand Alone Forms: Patient Portal/API
--- NOTE | 2024-11-30 08:10 | DI.RAD.S_ITS ---
PROCEDURE: XR LUMBAR SPINE 5V INDICATIONS: trauma TECHNIQUE: 5 views of the lumbar spine were acquired, including bilateral oblique views. COMPARISON: None. FINDINGS: Bones: 5 nonrib-bearing vertebrae are present. There is normal bony alignment. No vertebral body compression fractures. No suspicious bony lesions. Soft tissues: Overlying bowel gas pattern is normal. No suspicious soft tissue calcifications. Oblique images: No pars defects. IMPRESSION: No radiographic evidence of acute abnormality. If symptoms persist or worsen, or there is high clinical suspicion of lumbar abnormality, CT or MRI could be performed. Dictated by: Rafael Davies M.D. on 11/30/2024 at 9:06 Approved by: Rafael Davies M.D. on 11/30/2024 at 9:06
--- NOTE | 2024-11-30 08:10 | DI.RAD.S_ITS ---
PROCEDURE: XR KNEE RT 3V INDICATIONS: trauma TECHNIQUE: 3 views of the knee were acquired. COMPARISON: [facility], CR, XR KNEE RT 3V, 04/05/2024, 17:51. FINDINGS: Bones: No fractures or dislocations. No suspicious bony lesions. Soft tissues: No joint effusion. No suspicious soft tissue calcifications. IMPRESSION: No acute bony abnormality or significant effusion. Dictated by: Rafael Davies M.D. on 11/30/2024 at 9:05 Approved by: Rafael Davies M.D. on 11/30/2024 at 9:05
--- NOTE | 2024-11-30 08:10 | DI.RAD.S_ITS ---
PROCEDURE: XR CHEST 2V INDICATIONS: trauma TECHNIQUE: 2 views of the chest were acquired. COMPARISON: [facility], CR, XR CHEST 1V, 12/06/2023, 23:17. FINDINGS: Surgical changes and devices: None. Lungs and pleura: Lungs are clear. No pleural effusions or pneumothorax. Mediastinum: Mediastinal contours are normal. Heart size is normal. Bones and chest wall: No suspicious bony abnormalities. Soft tissues appear unremarkable. IMPRESSION: No acute cardiopulmonary abnormality is seen. Dictated by: Rafael Davies M.D. on 11/30/2024 at 9:05 Approved by: Rafael Davies M.D. on 11/30/2024 at 9:05
[2024-11-30] MEDS: KETOROLAC 30 MG/ML VIAL IM (08:33)
[2024-11-30] MEDS: ACETAMINOPHEN 325 MG TABLET 975 MG PO (08:34)
[2024-11-30 09:32] VITALS: BP 112/57; PULSE 65; O2SAT 99
== END 2024-11-30 09:27 | disposition home or self-care (01) ==
PROVIDERS: Emergency Provider Family Medicine
DX: M54.50 Low back pain, unspecified (principal); M25.561 Pain in right knee; W11.XXXA Fall on and from ladder, initial encounter
CPT/HCPCS: 71046; 72110; 73562; 96372; 99283; J1885

== ENCOUNTER → 2025-03-26 08:12 | Outpatient (CLI) | payer OTHER, SELFPAY ==
--- NOTE | 2025-03-26 08:13 | DI.US.S_ITS ---
PROCEDURE: US OB <= 14 WEEKS FETUS INDICATIONS: Official Dating US OUTSIDE/PRIOR DATING DATA: Last menstrual period (LMP): 01/13/2025. LMP-based estimated date of delivery (CAMILLA): 10/20/2025. First dating scan (date and location): 03/26/2025. Estimated date of delivery (CAMILLA) from first dating scan: 10/21/2025. TECHNIQUE: Real-time scanning was performed of the fetus and maternal pelvic organs, with image documentation. Endovaginal scanning was also performed to better visualize the fetus and maternal ovaries. COMPARISON: [facility], OB <= 14 WEEKS FETUS, 02/13/2025, 17:12. FINDINGS: Intrauterine gestation is seen, measuring 3.2 cm crown-rump length. Ultrasound age is 10 weeks and 1 day. Cardiac motion at a rate of 158 beats pr minute. There is a right corpus luteum cyst. IMPRESSION: Intrauterine gestation with cardiac motion. Ultrasound age is 10 weeks and 1 day. This is consistent with the reported LMP. Dictated by: Lamont Sanchez M.D. on 03/26/2025 at 9:20 Approved by: Lamont Sanchez M.D. on 03/26/2025 at 9:21
== END ==
LOC: US 08:13
PROVIDERS: PCP Student in an Organized Health Care Education/Training Program; Referring Provider Student in an Organized Health Care Education/Training Program; Visit Provider Student in an Organized Health Care Education/Training Program
DX: Z34.91 Encounter for supervision of normal pregnancy, unspecified, first trimester (principal); N83.11 Corpus luteum cyst of right ovary; Z3A.08 8 weeks gestation of pregnancy
CPT/HCPCS: 76801; 76817

== ENCOUNTER 2025-04-28 14:00 | Emergency (ER) | payer OTHER, SELFPAY ==
[2025-04-28] VITALS (7 sets, daily range): BP systolic 98–119; BP diastolic 59–65; PULSE 83–98; RESP 16–20; TEMP 36.7; O2SAT 97–100; BMI 19.5
[2025-04-28] MEDS: SODIUM CHLORIDE 0.9% 1,000 ML 1000 ML IV (16:31)
[2025-04-28 16:34] LABS: Add Manual Diff / Slide Review NO; Hematocrit 33.1 % (36-46); Hemoglobin 11.5 g/dL (12.0-16.0); Lymphocytes Absolute Auto 1100 /uL (1100-4500); Mean Corpuscular HGB Conc 34.7 % (30-36); Mean Corpuscular Hemoglobin 30.0 PG (26-34); Mean Corpuscular Volume 86.3 fL (80-100); Platelet Count 191 X10^3/uL (150-400)
[2025-04-28 16:45] LABS: Alanine Aminotransferase 13 IU/L (<35); Albumin 4.0 g/dL (3.5-5.0); Albumin Globulin Ratio 1.4 (1.0-2.8); Alkaline Phosphatase 55 U/L (38-126); Blood Urea Nitrogen 6 mg/dL (7-17); Calcium 9.1 mg/dL (8.4-10.2); Carbon Dioxide 24 mmol/L (22-32); Chloride 105 mmol/L (98-107); Estimated Glomerular Filt Rate > 60 mL/min (>60); Globulin 2.9 g/dL (1.7-4.1); Glucose 91 mg/dL (70-99); Lipase 62 U/L (23-300); Potassium 3.4 mmol/L (3.4-5.1); Sodium 138 mmol/L (137-145); Total Protein 6.9 g/dL (6.3-8.2)
[2025-04-28 17:03] LABS: HEMOLYSIS < 15 (0-50)
--- NOTE | 2025-04-28 19:34 | ED.ABDPAIN ---
HPI - Abdominal Pain General Chief Complaint: Abdominal Pain Stated Complaint: 16 wks preg, stomach pn, SOB, dizzy Time Seen by Provider: 04/28/25 16:19 Source: patient Mode of arrival: Ambulatory History of Present Illness HPI narrative: Initial lab work ordered by Dr. Glover but he was not able to get to the room to see the patient by the change of shift. 19-year-old female patient, 1 para 0 at 15 weeks EGA by LMP and to ultrasounds. She complains of right lower quadrant pain since this morning with no other symptoms. No fever, chills, diarrhea or change in appetite. She has a good appetite. She has some nausea and vomiting that has not changed from her morning sickness. . No dysuria. Related Data Home Medications ?Medication ?Instructions ?Recorded ?Confirmed vitamin-ferrous sulfate tab PO 02/14/25 04/19/25 27 mg iron-folic acid 0.8 mg tablet Allergies Allergy/AdvReac Type Severity Reaction Status Date / Time Latex, Natural Rubber AdvReac ITCHING Verified 04/28/25 14:06 Review of Systems Review of Systems ROS Unobtainable: All systems reviewed & are unremarkable except as noted in HPI and below Gastrointestinal Gastrointestinal: Reports as per HPI Patient History Medical History (Updated 04/28/25 @ 19:45 by Mynor Golden MD) Adopted H/O prematurity Crushing injury of right ring finger Laceration of right ring finger Surgical History (Updated 02/14/25 @ 15:38 by Freya Parekh RN) [place] teeth extracted Family History (Updated 02/14/25 @ 16:35 by Freya Parekh RN) Mother Multiple substance abuse Premature delivery Brother Prematurity Social History marital status: unmarried,living together household members: significant other and friend(s) lives independently: Yes caregiver/support person: No housing: apartment pets and animals: Yes (dogs) education level: high school occupational status: unemployed and previously employed current occupational exposures/hazards: Yes special ryan needs: No travel history: recent seatbelt use: always water heater temp set < 120 deg: Yes working smoke detector in home: Yes fire extinguisher in home: Yes carbon monox detector in home: Yes firearms in home: No do you feel safe at home: Yes second hand exposure: No alcohol intake: never substance use type: does not use during the past year weight has: remained stable well-balanced diet: rarely or never daily servings fruits/ve-1 caffeine: Yes (single cup coffee in AM) Type(s) of exercise: walking alcohol intake frequency: other Exam Narrative Exam Narrative: General: Alert and conversant. No distress. Appears well nourished and well hydrated Lungs: Clear to auscultation with good air movement. No wheezing, rales or rhonchi. No respiratory distress Abdomen: Soft, . Mild right lower quadrant tenderness with no rebound or guarding. Tenderness is not specific to McBurney's point. no distention or masses. Normal bowel sounds. No rebound or guarding Neuro: Alert and oriented. Cranial nerves, motor, sensory and cerebellar all grossly intact. No focal deficit Skin: Warm and normal color. No rashes Psychological: Normal affect and interaction. No evidence of delusion or psychosis. Normal mood. Initial Vital Signs Initial Vital Signs: Vital Signs Temperature 98.0 F 04/28/25 14:06 Pulse Rate 83 04/28/25 14:06 Respiratory Rate 16 04/28/25 14:06 Blood Pressure 119/62 04/28/25 14:06 Pulse Oximetry 99 04/28/25 14:06 Oxygen Delivery Method Room Air 04/28/25 14:06 Course Orders Ordered: ED Orders 04/28/25 16:28 Complete Blood Count AUTO DIFF Stat Comprehensive Metabolic Panel Stat Lipase Stat Discontinued Medications Acetaminophen (Acetaminophen 325 Mg Tablet) 650 mg PO NOW ONE Stop: 04/28/25 19:43 Last Admin: 04/28/25 19:49 Dose: 650 mg Documented By: JEAN PIERRE Sodium Chloride (Normal Saline 0.9%) 1,000 mls @ 1,000 mls/hr IV BOLUS ONE Stop: 04/28/25 17:19 Last Infusion: 04/28/25 17:45 Dose: Infused Documented By: JEAN PIERRE Admin: 04/28/25 16:31 Dose: 1,000 mls/hr Documented By: JEAN PIERRE Vital Signs Vital signs: Vital Signs - 8 hr 04/28/25 17:20 04/28/25 17:21 04/28/25 17:21 Pulse Rate 97 H Respiratory Rate Blood Pressure 112/59 L Pulse Oximetry 97 97 04/28/25 17:30 04/28/25 18:00 Pulse Rate 98 H 94 H Respiratory Rate 20 Blood Pressure Pulse Oximetry 100 99 MDM - Abdominal Pain Medical Records Attestation: I reviewed the patient's medical records. Lab Data Attestation: I reviewed the patient's lab results. 04/28/25 16:28 04/28/25 16:28 Labs: Lab Results 04/28/25 04/28/25 Range/Units 15:35 16:28 WBC 8.8 (4.5-11.0) X10^3/uL RBC 3.83 L (4.0-5.2) X10^6/uL Hgb 11.5 L (12.0-16.0) g/dL Hct 33.1 L (36-46) % MCV 86.3 (80-100) fL MCH 30.0 (26-34) PG MCHC 34.7 (30-36) % RDW 12.6 (11.6-14.8) % Plt Count 191 (150-400) X10^3/uL Neut % (Auto) 80.0 H (50-75) % Lymph % (Auto) 13.0 L (25-40) % [place] % (Auto) 6.3 (3-14) % Eos % (Auto) 0.4 L (2-4) % Baso % (Auto) 0.3 (0-2) % Neut # (Auto) 7100 H (1766-3468) /uL Lymph # (Auto) 1100 (8883-2220) /uL [place] # (Auto) 600 (0-900) /uL Eos # (Auto) 0 (0-450) /uL Baso # (Auto) 0 (0-100) /uL Sodium 138 (137-145) mmol/L Potassium 3.4 (3.4-5.1) mmol/L Chloride 105 (98-107) mmol/L Carbon Dioxide 24 (22-32) mmol/L BUN 6 L (7-17) mg/dL Creatinine 0.49 L (0.52-1.04) mg/dL Estimated GFR > 60 (>60) mL/min BUN/Creatinine Ratio 12.2 (6-22) Glucose 91 (70-99) mg/dL Calcium 9.1 (8.4-10.2) mg/dL Total Bilirubin 0.3 (0.2-1.3) mg/dL AST 22 (14-36) IU/L ALT 13 (<35) IU/L Alkaline Phosphatase 55 (38-126) U/L Total Protein 6.9 (6.3-8.2) g/dL Albumin 4.0 (3.5-5.0) g/dL Globulin 2.9 (1.7-4.1) g/dL Albumin/Globulin Ratio 1.4 (1.0-2.8) Lipase 62 (23-300) U/L Urine RBC None seen (0-5/HPF) Urine WBC 0-1/hpf (0-5/HPF) Ur Squamous Epith Cells 0-1 /hpf (0-5/HPF) Uric Acid Crystals Few H (None) Urine Bacteria None seen (None) Vol Urine Centrifuged 10ml (spun) Point of care testing: Point of Care Testing Test Results Positive Urine Dip Bedside Urine Glucose Negative Bedside Urine Bilirubin - Negative Bedside Urine Ketone ++ 40 Urine Specific [place] 1.020 Bedside Urine Occult Blood - Negative Bedside Urine pH 6 Bedside Urine Protein - Negative Bedside Urine Urobilinogen - Negative Bedside Urine Nitrite - Negative Bedside Urine Leukocytes - Negative Esterase MDM Narrative Medical decision making narrative: Patient is 1 para 0 at 15 weeks EGA with healthy to this point. She complains of right lower quadrant mild pain since this morning with good appetite and no fevers or other symptoms other than her morning sickness which has not changed. Appetite has been good. Lab work is essentially unremarkable. No elevated WBCs and urinalysis negative. On exam she has minimal tenderness with no rebound or guarding. I have very little suspicion for appendicitis or other surgical etiology based on the symptoms, physical exam and lab work. Patient has mild abdominal pain in 2nd trimester which maybe ligament pain. She is advised to monitor symptoms and contact her OB provider Wednesday morning in 1-1/2 days. Return to the ER if worse. Discharge Plan Departure Patient Disposition: Home Clinical Impression: Abdominal pain during in second trimester Instructions: DI for Abdominal Pain -- Early Activity Restrictions/Additional Instructions: Assessment: abdominal pain and was does not appear to be appendicitis or other surgical cause based on history, physical and lab work which is all reassuring possible round ligament pain or other discomfort of progressing . Plan: Hydration, rest and continue current care. May use acetaminophen for discomfort also cold or warm packs. Contact your OB provider Wednesday to discuss symptoms and follow up. Return to the ER if worse. Prescriptions: No Action vit-ferrous sulfat-FA 27 mg iron- 0.8 mg tablet PO Referrals: Rosario Delgadillo MD [Primary Care Provider, Family Practice] Stand Alone Forms: Patient Portal/API, Work Release Note
[2025-04-28] MEDS: ACETAMINOPHEN 325 MG TABLET 650 MG PO (19:49)
== END 2025-04-28 19:59 | disposition home or self-care (01) ==
PROVIDERS: Emergency Medicine; Emergency Provider Emergency Medicine; PCP Student in an Organized Health Care Education/Training Program
DX: O26.92 Pregnancy related conditions, unspecified, second trimester (principal); R10.31 Right lower quadrant pain; Z3A.15 15 weeks gestation of pregnancy
CPT/HCPCS: 36415; 80053; 81003; 81015; 81025; 83690; 85025; 96360; 99284; J7030

== ENCOUNTER → 2025-06-04 15:54 | Outpatient (CLI) | payer OTHER, SELFPAY ==
[2025-06-04 16:43] LABS: Add Manual Diff / Slide Review NO; Hematocrit 32.2 % (36-46); Hemoglobin 11.1 g/dL (12.0-16.0); Lymphocytes Absolute Auto 1200 /uL (1100-4500); Mean Corpuscular HGB Conc 34.6 % (30-36); Mean Corpuscular Hemoglobin 30.9 PG (26-34); Mean Corpuscular Volume 89.2 fL (80-100); Platelet Count 217 X10^3/uL (150-400)
[2025-06-04 17:15] LABS: Appearance Urine UA CLEAR; Bilirubin Urine UA NEGATIVE (NEGATIVE); Color Urine UA YELLOW; Glucose Urine UA NEGATIVE (Negative); Ketones Urine UA NEGATIVE (NEGATIVE); Leukocyte Esterase Urine UA NEGATIVE (NEGATIVE); Nitrite Urine UA NEGATIVE (Negative); Occult Blood Urine UA NEGATIVE (Negative); Protein Urine UA NEGATIVE (Negative); Specific Gravity Urine UA 1.010 (1.000-1.035); Urobilinogen Urine UA 0.2 E.U./dL (0.2)
[2025-06-04 17:19] LABS: pH Urine UA 7.0 (4.5-8.0)
[2025-06-04 18:46] LABS: Urine Chlamydia NOT DETECTED; Urine N gonorrhoeae NOT DETECTED
[2025-06-05 16:01] LABS: Hepatitis B Surface Antigen NEGATIVE s/c (NEGATIVE)
[2025-06-05 16:21] LABS: HIV 1 & 2 Ab/Ag 4th Gen Combo NEGATIVE (NEGATIVE); Hep C Virus Ab w/Reflex Quant NEGATIVE s/c (NEGATIVE)
== END ==
PROVIDERS: PCP Student in an Organized Health Care Education/Training Program; Referring Provider Student in an Organized Health Care Education/Training Program; Visit Provider Student in an Organized Health Care Education/Training Program
DX: Z34.01 Encounter for supervision of normal first pregnancy, first trimester (principal); Z3A.16 16 weeks gestation of pregnancy
CPT/HCPCS: 36415; 80055; 81003; 82105; 82677; 84702; 86336; 86787; 86803; 86850; 86900; 86901; 87086; 87389; 87491; 87591